=== PATIENT | male | born 1940 | race Caucasian/White ===

== ENCOUNTER 2023-09-12 00:43 | Day surgery (SDC) | payer MEDICARE, SELFPAY ==
[2023-09-11 14:40] VITALS: BMI 29.9
[2023-09-12] VITALS (13 sets, daily range): BP systolic 116–150; BP diastolic 68–86; PULSE 64–93; RESP 12–17; TEMP 37.1; O2SAT 94–97; BMI 29.7
--- NOTE | 2023-09-12 07:30 | ECG_ITS ---
Measurements Intervals [place] Rate: 69 P: MA: 0 QRS: -60 QRSD: 178 T: -6 QT: 419 QTc: 449 Interpretive Statements ATRIAL FLUTTER WITH NORMAL VENTRICULAR RESPONSE RIGHT BUNDLE BRANCH BLOCK LEFT ANTERIOR FASCICULAR BLOCK LEFT VENTRICULAR HYPERTROPHY BASELINE ARTIFACT- II, III, AVR, AVL, AVF ABNORMAL ECG NO PREVIOUS ECG AVAILABLE FOR COMPARISON Electronically Signed On 09-12-2023 7:46:34 JOINTER MACHINE by Edgar Shafer D.O.
[2023-09-12 08:09] LABS: Alanine Aminotransferase 66 U/L (6-50); Albumin Level 3.8 g/dL (3.5-5.1); Alkaline Phosphatase 116 U/L (38-126); Anion Gap 3 mmol/L (8-16); Aspartate Amino Transferase 41 U/L (17-59); Bilirubin,Total 0.5 mg/dL (0.2-1.3); Blood Urea Nitrogen 11 mg/dL (9-20); Calcium 8.8 mg/dL (8.4-10.2); Carbon Dioxide 29 mmol/L (22-30); Chloride 104 mmol/L (98-107); Estimated CRCL calculation 69 ml/min; Estimated Glomerular Filt Rate > 60; Glucose 111 mg/dL (65-110); Sodium 136 mmol/L (137-145)
[2023-09-12 08:15] LABS: INR 4.6; Prothrombin Time 47.5 Seconds (11.1-14.7)
[2023-09-12 08:23] LABS: Magnesium 2.3 mg/dL (1.6-2.3)
--- NOTE | 2023-09-12 08:55 | SUR.PREOP ---
DR. SOSA NOTIFIED OF INR RESULT OF 4.6 THIS AM. NO NEW ORDERS RECEIVED.
--- NOTE | 2023-09-12 09:15 | P.PCNCC_ITS ---
Cardiac Cath Procedure Note Date of procedure:: 09/12/23 Performing physician:: Robbie Sethi MD Indication:: Recent diagnosis of atrial flutter Brief clinical history:: This is an 83-year-old man with a history of aortic valve stenosis being followed clinically in the office. He was seen in emergency room elsewhere recently and had some shortness of breath was found to be in atrial flutter with controlled ventricular response. He is anticoagulated with warfarin. His home medical regimen includes a modest dose of short-acting diltiazem as well as bisoprolol. An attempt at restoring sinus rhythm electrically has been recommended and scheduled for this morning Procedure Procedure performed:: DC cardioversion Sedation/Medication given:: Intravenous propofol in aliquots total dosage of 70 mg Estimated blood loss:: 0 Procedure note:: Patient was brought to the cardiac catheterization lab in holding area in the postabsorptive state where he was placed in the supine position defibrillator patches were placed in the AP position and IV access was obtained in the right upper extremity. He then was given IV propofol in aliquots a total dosage of 70 mg was administered which provided excellent sedation. He was then counter shocked with 200 joules in a synchronized fashion restoring normal sinus rhythm following 1 shock. Findings:: As above Conclusion:: Successful uncomplicated DC cardioversion of atrial flutter to sinus rhythm using 200 joules x1 shock. Robbie Sethi MD [facility]
--- NOTE | 2023-09-12 09:17 | ECG_ITS ---
Rate NV QRSd QT QTc P QRS T Severity 73 240 156 426 472 -5 -49 5 Abnormal ECG SINUS RHYTHM WITH FIRST DEGREE AV BLOCK RIGHT BUNDLE BRANCH BLOCK LEFT ANTERIOR FASCICULAR BLOCK ABNORMAL ECG COMPARED TO ECG 09/12/2023 07:30:49 SINUS RHYTHM NOW PRESENT FIRST DEGREE AV BLOCK NOW PRESENT Electronically Signed On 09-12-2023 9:21:44 CUSTOM DRESSMAKER by Edgar HENDRICKSON
== END 2023-09-12 11:25 | disposition home or self-care (01) ==
PROVIDERS: PCP Internal Medicine; Visit Provider Specialist
PROC: 5A2204Z Restoration of Cardiac Rhythm, Single (ICD-10-PCS; principal; 2023-09-12 09:00)
DX: I48.92 Unspecified atrial flutter (principal); Z79.01 Long term (current) use of anticoagulants; Q23.1 Congenital insufficiency of aortic valve
CPT/HCPCS: 36415; 80053; 83735; 85610; 92960; J2704; J7030

== ENCOUNTER 2024-06-29 12:12 | Emergency (ER) | payer MEDICARE, SELFPAY ==
[2024-06-29 12:14] VITALS: BP 163/77; PULSE 68; RESP 16; TEMP 36.4; O2SAT 98
[2024-06-29 12:30] VITALS: BP 176/77; PULSE 79; RESP 16; O2SAT 98
--- NOTE | 2024-06-29 12:54 | ECG_ITS ---
Test Date: 2024-06-29 13:32:33 Measurements Intervals [place] Rate: 60 P: 110 MD: 181 QRS: 129 QRSD: 146 T: -13 QT: 486 QTc: 489 Interpretive Statements ELECTRONIC ATRIAL PACEMAKER ELECTRONIC VENTRICULAR PACEMAKER ABNORMAL RHYTHM ECG No previous ECG available for comparison Electronically Signed On 06-29-2024 14:43:21 BARREL INSPECTOR TIGHT by Odessa Corley M.D.
[2024-06-29 13:23] LABS: Basophils Percent Auto 0.6 % (0.2-1.2); Eosinophils Absolute Auto 0.1 K/mm3 (0-0.3); Hematocrit 38.5 % (42.0-52.0); Hemoglobin 12.5 g/dL (14.0-18.0); Immature Granulocyte Absolute 0.01 K/mm3 (0.00-0.031); Immature Granulocyte Percent A 0.2 % (0-0.5); Lymphocytes Absolute Auto 1.25 K/mm3 (0.9-3.2); Lymphocytes Percent Auto 18.8 % (18.3-44.2); Mean Corpuscular HGB Conc 32.5 g/dl (32-36); Mean Corpuscular Hemoglobin 29.7 pg (26-34); Mean Corpuscular Volume 91.4 fl (80-100); Mean Platelet Volume 9.8 fl (7.4-10.4); Monocytes Absolute Auto 0.6 K/mm3 (0.1-0.6); Monocytes Percent Auto 9.6 % (2.6-8.5); Neutrophils Absolute Auto 4.6 K/mm3 (1.3-6.7); Neutrophils Percent Auto 68.8 % (45.5-73.1); Platelet Count Result 151 k/mm3 (150-375); Red Blood Count 4.21 M/mm3 (4.6-6.20); Red Cell Distribution Width 14.8 % (11.5-14.5); White Blood Count 6.7 K/mm3 (4.5-10.0)
[2024-06-29 13:30] VITALS: BP 149/75; PULSE 60; RESP 16; O2SAT 98
[2024-06-29 13:33] LABS: Anion Gap 3 mmol/L (4-12); Blood Urea Nitrogen 18 mg/dL (9-20); Calcium 8.7 mg/dL (8.4-10.2); Carbon Dioxide 28 mmol/L (22-30); Chloride 100 mmol/L (98-107); Estimated CRCL calculation 86 ml/min; Estimated Glomerular Filt Rate > 60; Glucose 114 mg/dL (65-110); Potassium 3.8 mmol/L (3.4-5.0); Sodium 131 mmol/L (137-145)
[2024-06-29 14:40] VITALS: BP 135/73; PULSE 62; RESP 16; O2SAT 98
--- NOTE | 2024-06-29 15:08 | ED_ITS ---
HPI - Recheck/Abnormal Lab/Rx General Chief Complaint: Recheck/Abnormal Lab/Rx Stated Complaint: high blood pressure Time Seen by Provider: 06/29/24 12:51 History of Present Illness HPI narrative: 84-year-old male with a past medical history significant for TAVR procedure in November of 2023 as well as pacemaker 2023. Sees Dr. Moran from Cardiology. They presents to the emergency room with concerns as blood pressure was elevated. He woke up today and elevated blood pressures in the 180s to 190 systolic range. He felt slightly dizzy. He took his morning medications thereafter and recheck his pressure about 30 minutes later and was still elevated so he went to the ER. On initial presentation his a blood pressure 150/76 in the examination room. He has no complaints at this time states that he is no longer dizzy, feeling much better. Denies any chest pain shortness a breath. Did have any chest pain shortness a breath prior to arrival either. No nausea, vomiting, headache, vision changes. Patient was otherwise in his normal state of health. Recent cardiology visit for routine 6 month evaluation with no concerns. The patient presently asymptomatic. Related Data Home Medications ?Medication ?Instructions ?Recorded ?Confirmed ?Last Taken ?Type finasteride 5 mg tablet 5 mg PO HS 09/11/23 09/11/23 09/10/23 History ibuprofen 800 mg tablet 800 mg PO Q6H PRN Pain, Moderate 09/11/23 09/11/23 Unknown History rosuvastatin 20 mg tablet 20 mg PO DAILY 09/11/23 09/12/23 09/12/23 History tamsulosin 0.4 mg capsule 0.4 mg PO DAILY 09/11/23 09/12/23 09/12/23 History triamcinolone acetonide 0.1 % applic topical BID 09/11/23 Unknown History topical ointment warfarin 2 mg tablet 2 mg PO DAILY 09/11/23 09/12/23 09/12/23 History warfarin 3 mg tablet 3 mg PO DAILY 09/11/23 09/12/23 09/12/23 History Allergies Allergy/AdvReac Type Severity Reaction Status Date / Time No Known Allergies Allergy Verified 06/29/24 12:13 Review of Systems 2 Review of Systems: As reviewed above in [facility] Social History Social History Smoking packs per day: 1 Smoking cigarettes per day: 20.0 Years smoked: 50 Smoking pack-years: 50.00 Smoking status: Former smoker Tobacco type: cigarettes Smoking end date: 07/07/88 Alcohol intake: current Alcohol use details: typically 3-4 daily but currently less as of 09/2023 Substance use: never Living arrangements: alone Spiritual care concerns: No Exam 2 Narrative: GENERAL: [Well-appearing, well-nourished, and in no acute distress.] HEAD: [Normocephalic, atraumatic.] EYES: [PERRLA and EOMI.] ENT: Nares clear, no rhinorrhea or epistaxis. Mucous membranes moist. NECK: Supple. CHEST: [Clear to auscultation. No respiratory distress.] HEART: [Regular rate and rhythm]. No murmur heard. [Normal peripheral pulses.] ABDOMEN: [Soft, nondistended], [nontender], [No rigidity or guarding] EXTREMITIES: Normal range of motion. [No edema.] SKIN: Warm, dry, no rash. NEURO: [No focal deficits]. Alert and oriented [x3.] PSYCH: [Normal mood and affect.] Course Vital Signs Vital signs: Vital Signs Temperature 36.4 C L 06/29/24 12:14 Pulse Rate 68 06/29/24 12:14 Respiratory Rate 16 06/29/24 12:14 Blood Pressure 163/77 H 06/29/24 12:14 Pulse Oximetry 98 06/29/24 12:14 Oxygen Delivery Room Air 06/29/24 12:14 Temperature 36.4 C L 06/29/24 12:14 Pulse Rate 79 06/29/24 12:30 Respiratory Rate 16 06/29/24 12:30 Blood Pressure 176/77 H 06/29/24 12:30 Pulse Oximetry 98 06/29/24 12:30 Oxygen Delivery Room Air 06/29/24 12:14 MDM - Recheck/Abnormal Lab/Rx MDM Narrative Medical decision making narrative: 84-year-old male with a history of TAVR and pacemaker placed in November of 2023. Follows up with Cardiology frequently. Recent visit with no concerns during routine 6 month follow-up at the beginning of this month. Patient presently is asymptomatic but woke up with elevated blood pressure. It was in the 180-190 range. He took his blood pressure medications this morning and presently his blood pressure in the 150 systolic range. Patient states this is more the usual for his blood pressure range and has no symptoms at this time. He previously was feeling dizzy but denies any chest pain shortness a breath. Presently no dizziness and no other symptoms. Basic labs were obtained as well as an EKG to assess for any kind of cardiac arrhythmia or derangements and he can be safely discharged home with PCP follow-up thereafter. Workup shows no leukocytosis, hemoglobin 12.5, normal platelets. Electrolytes are largely within normal limits, normal renal function panel. EKG was nonischemic, pacemaker identified. He is still asymptomatic with normal vital signs, asymptomatic hypertension and is instructed to continue taking his normal medications including his nightly blood pressure meds. He was safe for discharge home at this time. Given return precautions including developing chest pain, shortness a breath or any other symptoms that concern him. Medical Records Attestation: I reviewed the patient's medical records. Lab Data Attestation: I reviewed the patient's lab results. 06/29/24 13:12 06/29/24 13:12 Labs: Lab Results 06/29/24 Range/Units 13:12 WBC 6.7 (4.5-10.0) K/mm3 RBC 4.21 L (4.6-6.20) M/mm3 Hgb 12.5 L (14.0-18.0) g/dL Hct 38.5 L (42.0-52.0) % MCV 91.4 (80-100) fl MCH 29.7 (26-34) pg MCHC 32.5 (32-36) g/dl RDW 14.8 H (11.5-14.5) % Plt Count 151 (150-375) k/mm3 MPV 9.8 (7.4-10.4) fl Immature Gran % (Auto) 0.2 (0-0.5) % Neut % (Auto) 68.8 (45.5-73.1) % Lymph % (Auto) 18.8 (18.3-44.2) % [place] % (Auto) 9.6 H (2.6-8.5) % Eos % (Auto) 2.0 (0-4.4) % Baso % (Auto) 0.6 (0.2-1.2) % Lymph # (Auto) 1.25 (0.9-3.2) K/mm3 [place] # (Auto) 0.6 (0.1-0.6) K/mm3 Eos # (Auto) 0.1 (0-0.3) K/mm3 Baso # (Auto) 0.0 (0.0-0.1) K/mm3 Abs Immat Gran (auto) 0.01 (0.00-0.031) K/mm3 Absolute Neuts (auto) 4.6 (1.3-6.7) K/mm3 Absolute Nucleated RBC 0.000 (0.0-0.012) K/mm3 Nucleated RBC % 0.0 (0.0-0.2) % Sodium 131 L (137-145) mmol/L Potassium 3.8 (3.4-5.0) mmol/L Chloride 100 (98-107) mmol/L Carbon Dioxide 28 (22-30) mmol/L Anion Gap 3 L (4-12) mmol/L BUN 18 (9-20) mg/dL Creatinine 0.60 L (0.7-1.3) mg/dL Estim Creat Clear Calc 86 ml/min Estimated GFR > 60 (59 - ) Glucose 114 H (65-110) mg/dL Calcium 8.7 (8.4-10.2) mg/dL Discharge Plan Discharge Clinical Impression: Asymptomatic hypertension Patient Disposition: Home, Self-Care Condition: Stable Instructions: Antibiotic Form, Chronic Hypertension (DC), Normal Exam (ED) Additional Instructions: Follow-up with your regular primary care provider and client server developer on outpatient basis. Return with any new or worsening concerns at any time. Take your morning and evening medications as prescribed. Patient Language: Mongolian Prescriptions: No Action warfarin 3 mg tablet 3 mg PO DAILY Rx Instructions: 3 + 2 mg tabs to equal 5 mg total tamsulosin 0.4 mg capsule 0.4 mg PO DAILY Rx Instructions: pt takes prn triamcinolone acetonide 0.1 % ointment TOPICAL BID warfarin 2 mg tablet 2 mg PO DAILY Rx Instructions: 2 + 3 mg to total 5 mg finasteride 5 mg tablet 5 mg PO HS rosuvastatin 20 mg tablet 20 mg PO DAILY ibuprofen 800 mg Tablet 800 mg PO Q6H PRN (Reason: Pain, Moderate) sotalol [Sotalol AF] 80 mg Tablet 80 mg PO Q12H 30 Days Qty: 60 3RF Follow-up/Referrals: Ricky,Aroldo Felton MD [Primary Care Provider] - Time of Disposition: 14:36
== END 2024-06-29 14:40 | disposition home or self-care (01) ==
PROVIDERS: Emergency Provider Student in an Organized Health Care Education/Training Program; PCP Internal Medicine
DX: I10 Essential (primary) hypertension (principal); Z95.0 Presence of cardiac pacemaker; Z87.891 Personal history of nicotine dependence; Z79.01 Long term (current) use of anticoagulants; Z79.899 Other long term (current) drug therapy
CPT/HCPCS: 36415; 80048; 85025; 93005; 99283